=== PATIENT | male | born 1985 | race American Indian/Alaskan Native ===

== ENCOUNTER 2022-03-15 05:30 | Emergency (ER) | payer SELFPAY ==
--- NOTE | 2022-03-15 06:41 | XRay Report ---
LEFT ELBOW 3 VIEW(S) INDICATION / CLINICAL INFORMATION: glass laceration COMPARISON: None available. FINDINGS: BONES / JOINT(S): No acute fracture or subluxation. No significant arthritis. SOFT TISSUES: Multiple radiopaque foreign bodies are seen within the soft tissues along the posterior ulnar aspect of elbow ADDITIONAL FINDINGS: None. IMPRESSION: 1. Radiopaque glass fragments described above Signer Name: Marcus Jansen MD Signed: 03/15/2022 6:36 AM Workstation Name: [id number]
[2022-03-15] MEDS ORDERED: TETANUS,DIPH,PERTUSS(ACELL) VACCINE 0.5 ML SYRINGE IM ONE (11:25)
[2022-03-15] MEDS ORDERED: KETOROLAC 10 MG TAB PO ONE (11:25)
[2022-03-15] MEDS ORDERED: oxyCODONE /ACETAMINOPHEN 5-325MG TAB PO ONE (11:26)
[2022-03-15] MEDS ORDERED: MUPIROCIN 2% OINT 22 GM TP ONE (12:00)
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
[2022-03-15 12:37] VITALS: BP 143/90
== END 2022-03-15 12:36 | disposition home or self-care (01) ==
LOC: ED 05:30
DX: S50.312A Abrasion of left elbow, initial encounter (principal); F17.290 Nicotine dependence, other tobacco product, uncomplicated; W25.XXXA Contact with sharp glass, initial encounter; Y93.89 Activity, other specified; Y92.89 Other specified places as the place of occurrence of the external cause; Y99.8 Other external cause status
CPT/HCPCS: 90471; 90715; 99284